=== PATIENT | male | born 1960 | race Caucasian/White ===

== ENCOUNTER 2020-07-02 10:27 | Outpatient (CLI) | payer BC | END 2020-07-02 10:28 | disposition home or self-care (01) | LOC: CSHCT 10:27 | PROVIDERS: ATTEND Family Medicine | DX: N23 Unspecified renal colic (principal); N20.1 Calculus of ureter; N28.1 Cyst of kidney, acquired; K57.30 Diverticulosis of large intestine without perforation or abscess without bleeding; K44.9 Diaphragmatic hernia without obstruction or gangrene | CPT/HCPCS: 74176 ==